=== PATIENT | female | born 1980 | race Hispanic/Latino ===

== ENCOUNTER 2022-09-22 17:33 | Emergency (ER) | payer OTHER ==
[~2022-09-22] VITALS: Ht 170.2 cm; Wt 155.1 kg
[2022-09-22 18:15] LABS: BASOPHILS % (AUTO) 0.4 % (0.0-5.0); EOSINOPHILS % (AUTO) 1.4 % (0.0-8.0); HEMATOCRIT 41.1 % (36-48); LYMPHOCYTES % (AUTO) 24.8 % (21.0-51.0); MEAN CORPUSCULAR HEMOGLOBIN 27.9 pg (27.0-33.0); MEAN CORPUSCULAR HGB CONC 32.4 g/dL (32.0-36.0); MEAN CORPUSCULAR VOLUME 86.3 fL (79-99); PLATELET COUNT (AUTO) 243 K/uL (130-400); RED BLOOD CELL COUNT(AUTO) 4.76 MIL/uL (4.00-5.50); RED CELL DISTRIBUTION WIDTH 13.7 % (11.0-15.5); WHITE BLOOD COUNT (AUTO) 4.8 K/uL (4.8-10.8)
[2022-09-22 18:23] LABS: CREATININE 0.9 mg/dL (0.5-1.5); POTASSIUM 4.5 mmol/L (3.5-5.1)
[2022-09-22 18:28] LABS: ALBUMIN 3.3 g/dL (3.5-5.0); TOTAL PROTEIN, SERUM 6.9 g/dL (6.0-8.3)
[2022-09-22] MEDS ORDERED: ONDA-104 PO (20:14)
[2022-09-22] MEDS ORDERED: IBUP-1493 PO (20:14)
[2022-09-22] MEDS ORDERED: ALBU90AE2 IH (20:14)
[2022-09-22] MEDS ORDERED: NIRM1TAB PO (20:14)
[2022-09-22] MEDS ORDERED: ONDANSETRON ODT 4MG TAB SL ONE (20:30)
[2022-09-22] MEDS ORDERED: IBUPROFEN 800 MG TAB PO ONE (20:30)
[2022-09-22 20:40] VITALS: BP 131/73
== END 2022-09-22 21:11 | disposition home or self-care (01) ==
LOC: EDH 17:33
DX: U07.1 COVID-19 (principal); J45.909 Unspecified asthma, uncomplicated; E11.9 Type 2 diabetes mellitus without complications; Z90.49 Acquired absence of other specified parts of digestive tract; Z88.0 Allergy status to penicillin
CPT/HCPCS: 99285; 71045; 87635; 84484; 80053; 85025; 87804 ×2; 36415; 93005; C9803